=== PATIENT | female | born 1965 | race Caucasian/White ===

== ENCOUNTER 2017-07-15 16:29 | Emergency (ER) | payer SELFPAY ==
[~2017-07-15 16:29] MED LIST: ASPI81TA40 PO; CLOP75TA32 PO; LISI40TA4 PO
[2017-07-15 16:49] LABS: EOSINOPHILS % (AUTO) 1.6 % (0.0-8.0); HEMATOCRIT 43.4 % (36-48); MEAN CORPUSCULAR HEMOGLOBIN 30.6 pg (27.0-33.0); MEAN CORPUSCULAR HGB CONC 35.2 g/dL (32.0-36.0); MEAN CORPUSCULAR VOLUME 86.8 fL (79-99); MONOCYTES % (AUTO) 5.5 % (3.0-13.0); NEUTROPHILS % (AUTO) 63.9 % (40.0-77.0); PLATELET COUNT (AUTO) 292 K/uL (130-400); RED BLOOD CELL COUNT(AUTO) 4.99 MIL/uL (4.00-5.50); RED CELL DISTRIBUTION WIDTH 13.7 % (11.0-15.5); WHITE BLOOD COUNT (AUTO) 7.5 K/uL (4.8-10.8)
[2017-07-15 17:04] LABS: INR 0.95 (0.85-1.15); PARTIAL THROMBOPLASTIN TIME 23.4 SEC (26.3-35.5)
[2017-07-15 17:06] LABS: ALBUMIN 3.6 g/dL (3.5-5.0); BILIRUBIN,TOTAL 0.3 mg/dL (0.2-1.0); TOTAL PROTEIN, SERUM 6.9 g/dL (6.0-8.3)
[2017-07-15] MEDS ORDERED: IBUPROFEN 400 MG TABLET ONE (17:11)
[2017-07-15 17:13] LABS: POTASSIUM 2.6 mmol/L (3.5-5.1)
[2017-07-15] MEDS ORDERED: POTASSIUM CHLORIDE 20 MEQ ERTAB PO ONE (17:20)
[2017-07-15 18:10] LABS: APPEARANCE,URINE Clear (CLEAR); BILIRUBIN,URINE Negative (NEGATIVE); COLOR,URINE Yellow (YELLOW); GLUCOSE, URINE (UA) Negative (NEGATIVE); KETONES,URINE Negative (NEGATIVE); LEUKOCYTE ESTERASE ,URINE Negative (NEGATIVE); NITRATE,URINE Negative (NEGATIVE); OCCULT BLOOD,URINE Negative (NEGATIVE); PH,URINE 6.5 (5.0-8.0); PROTEIN,URINE Negative (NEGATIVE)
== END 2017-07-15 20:11 | disposition home or self-care (01) ==
LOC: EDH 16:29
DX: S32.008A Other fracture of unspecified lumbar vertebra, initial encounter for closed fracture (principal); S19.89XA Other specified injuries of other specified part of neck, initial encounter; I10 Essential (primary) hypertension; Z88.8 Allergy status to other drugs, medicaments and biological substances; W18.39XA Other fall on same level, initial encounter; Y93.89 Activity, other specified; Y92.89 Other specified places as the place of occurrence of the external cause; Y99.8 Other external cause status
CPT/HCPCS: 36415; 70450; 71045; 72125; 72131; 80053; 81003; 84484; 85025; 85610; 85730; 93005

== ENCOUNTER 2018-03-11 18:18 | Emergency (ER) | payer OTHER ==
[2018-03-11 18:55] LABS: BASOPHILS % (AUTO) 0.5 % (0.0-5.0); EOSINOPHILS % (AUTO) 0.7 % (0.0-8.0); LYMPHOCYTES % (AUTO) 26.8 % (21.0-51.0); MEAN CORPUSCULAR HEMOGLOBIN 26.6 pg (27.0-33.0); MEAN CORPUSCULAR HGB CONC 33.8 g/dL (32.0-36.0); MEAN CORPUSCULAR VOLUME 78.6 fL (79-99); MONOCYTES % (AUTO) 6.8 % (3.0-13.0); NEUTROPHILS % (AUTO) 65.2 % (40.0-77.0); PLATELET COUNT (AUTO) 243 K/uL (130-400); RED BLOOD CELL COUNT(AUTO) 5.59 MIL/uL (4.00-5.50); RED CELL DISTRIBUTION WIDTH 20.3 % (11.0-15.5); WHITE BLOOD COUNT (AUTO) 8.9 K/uL (4.8-10.8)
[2018-03-11 19:05] LABS: CARBON DIOXIDE 30 mmol/L (21-32); CHLORIDE 101 mmol/L (101-111); GLOMERULAR FILTR. RATE CALC 61 mL/min (>60); GLUCOSE,RANDOM 98 mg/dL (70-105); POTASSIUM 3.2 mmol/L (3.5-5.1); SODIUM SERUM 140 mmol/L (136-145); UREA NITROGEN, BLOOD 7 mg/dL (7-18)
[2018-03-11 19:09] LABS: ALANINE AMINOTRANSFERASE 32 U/L (12-78); ALBUMIN 3.7 g/dL (3.5-5.0); ASPARTATE AMINOTRANSFERASE 24 U/L (10-37); BILIRUBIN,TOTAL 0.3 mg/dL (0.2-1.0); SALICYLATE 4.9 mg/dL (2.8-20.0); TOTAL PROTEIN, SERUM 7.2 g/dL (6.0-8.3)
[2018-03-11 19:16] LABS: ACETAMINOPHEN < 1 mcg/mL (10-30); ALCOHOL, BLOOD < 3 mg/dL (0-10)
[2018-03-11] MEDS ORDERED: POTASSIUM BICARB/CIT AC 25 MEQ TABLET.EFF ONE (19:34)
[2018-03-11] MEDS ORDERED: POTASSIUM CHLORIDE 20 MEQ ERTAB PO ONE (19:38)
[2018-03-11 19:48] LABS: APPEARANCE,URINE Clear (CLEAR); BILIRUBIN,URINE Negative (NEGATIVE); COLOR,URINE Yellow (YELLOW); GLUCOSE, URINE (UA) Negative (NEGATIVE); KETONES,URINE Negative (NEGATIVE); LEUKOCYTE ESTERASE ,URINE Small (NEGATIVE); NITRATE,URINE Negative (NEGATIVE); OCCULT BLOOD,URINE Negative (NEGATIVE); PH,URINE 6.5 (5.0-8.0); PROTEIN,URINE Negative (NEGATIVE)
[2018-03-11 19:56] LABS: AMPHET/METH SCREEN,URINE NEGATIVE (NEGATIVE); BARBITURATE SCREEN, URINE NEGATIVE (NEGATIVE); BENZODIAZEPINES SCREEN,URINE NEGATIVE (NEGATIVE); CANNABINOID SCREEN,URINE NEGATIVE (NEGATIVE); COCAINE SCREEN,URINE NEGATIVE (NEGATIVE); OPIATE SCREEN,URINE NEGATIVE (NEGATIVE); PHENCYCLIDINE SCREEN,URINE NEGATIVE (NEGATIVE)
[2018-03-11 20:00] LABS: BACTERIA,URINE Few /HPF (None Seen); RBC,URINE 0-1 /HPF (0-1); WBC,URINE 0-1 /HPF (0-1)
== END 2018-03-11 20:12 | disposition home or self-care (01) ==
LOC: EDH 18:18
DX: R45.851 Suicidal ideations (principal); R45.850 Homicidal ideations; I10 Essential (primary) hypertension; F20.9 Schizophrenia, unspecified; J44.9 Chronic obstructive pulmonary disease, unspecified; Z72.0 Tobacco use; Z88.1 Allergy status to other antibiotic agents
CPT/HCPCS: 36415; 80053; 80305; 81001; 85025; 93005; 99285; G0480 ×2; G0481

== ENCOUNTER 2018-11-20 19:19 | Emergency (ER) | payer OTHER ==
[2018-11-20 20:33] LABS: EOSINOPHILS % (AUTO) 1.5 % (0.0-8.0); HEMATOCRIT 45.7 % (36-48); LYMPHOCYTES % (AUTO) 39.6 % (21.0-51.0); MEAN CORPUSCULAR HEMOGLOBIN 29.3 pg (27.0-33.0); MEAN CORPUSCULAR HGB CONC 34.8 g/dL (32.0-36.0); MEAN CORPUSCULAR VOLUME 84.2 fL (79-99); MONOCYTES % (AUTO) 5.8 % (3.0-13.0); NEUTROPHILS % (AUTO) 52.1 % (40.0-77.0); PLATELET COUNT (AUTO) 252 K/uL (130-400); RED BLOOD CELL COUNT(AUTO) 5.42 MIL/uL (4.00-5.50); RED CELL DISTRIBUTION WIDTH 15.8 % (11.0-15.5); WHITE BLOOD COUNT (AUTO) 9.2 K/uL (4.8-10.8)
[2018-11-20 20:41] LABS: INR 0.97 (0.85-1.15); PARTIAL THROMBOPLASTIN TIME 25.6 SEC (26.3-35.5); PROTHROMBIN TIME 10.2 SEC (9.6-11.6)
[2018-11-20 20:42] LABS: CREATININE 1.1 mg/dL (0.5-1.5); POTASSIUM 3.3 mmol/L (3.5-5.1)
[2018-11-20 20:47] LABS: BILIRUBIN,TOTAL 0.4 mg/dL (0.2-1.0); TOTAL PROTEIN, SERUM 7.7 g/dL (6.0-8.3)
[2018-11-20 21:27] LABS: BILIRUBIN,URINE Negative (NEGATIVE); COLOR,URINE Yellow (YELLOW); GLUCOSE, URINE (UA) Negative (NEGATIVE); KETONES,URINE Negative (NEGATIVE); LEUKOCYTE ESTERASE ,URINE Trace (NEGATIVE); NITRATE,URINE Negative (NEGATIVE); OCCULT BLOOD,URINE Negative (NEGATIVE); PH,URINE 5.5 (5.0-8.0); PROTEIN,URINE Negative (NEGATIVE); UROBILINOGEN,URINE 0.2 mg/dL (0.2-1.0)
[2018-11-20 21:31] LABS: APPEARANCE,URINE Clear (CLEAR)
[2018-11-20 21:35] LABS: AMPHET/METH SCREEN,URINE NEGATIVE (NEGATIVE); BARBITURATE SCREEN, URINE NEGATIVE (NEGATIVE); BENZODIAZEPINES SCREEN,URINE NEGATIVE (NEGATIVE); CANNABINOID SCREEN,URINE NEGATIVE (NEGATIVE); COCAINE SCREEN,URINE NEGATIVE (NEGATIVE); OPIATE SCREEN,URINE NEGATIVE (NEGATIVE); PHENCYCLIDINE SCREEN,URINE NEGATIVE (NEGATIVE)
[2018-11-20 21:50] LABS: BACTERIA,URINE Rare /HPF (None Seen); MUCUS,URINE Rare LPF (None Seen); RBC,URINE None Seen /HPF (0-1); WBC,URINE 0-1 /HPF (0-1)
== END 2018-11-20 23:28 | disposition home or self-care (01) ==
LOC: EDH 19:19
DX: I73.9 Peripheral vascular disease, unspecified (principal); M54.5 Low back pain; M79.605 Pain in left leg; M79.604 Pain in right leg; F41.9 Anxiety disorder, unspecified; J44.9 Chronic obstructive pulmonary disease, unspecified; F32.9 Major depressive disorder, single episode, unspecified; I10 Essential (primary) hypertension; F20.9 Schizophrenia, unspecified; Z88.1 Allergy status to other antibiotic agents
CPT/HCPCS: 36415; 71045; 72100; 80053; 80305; 81001; 82550; 84484; 85025; 85610; 85730; 93005; 93925; 93970

== ENCOUNTER → 2019-11-15 | Outpatient (CLI) | payer OTHER | END | disposition home or self-care (01) | LOC: SHCH 13:38 | PROVIDERS: ATTEND Internal Medicine Cardiovascular Disease | DX: R06.09 Other forms of dyspnea (principal) | CPT/HCPCS: 93306; 93356 ==

== ENCOUNTER → 2019-11-21 | Outpatient (CLI) | payer OTHER ==
[~2019-11-21] MED LIST changes: +AEC81 PO; +AMLO-257 PO; +ARIP2TAB3 PO; +ATOR40TA69 PO; +HYDR50CA PO; +NITR0.4T50 SL; +OLME40TA18 PO; +PANT20TA PO; +TOLT4CAP13 PO; +VENL225T3 PO
== END | disposition home or self-care (01) ==
LOC: SHCH 08:00
PROVIDERS: ATTEND Internal Medicine Cardiovascular Disease
DX: I87.2 Venous insufficiency (chronic) (peripheral) (principal)
CPT/HCPCS: 93880; 93925; 93970

== ENCOUNTER 2019-12-07 08:22 | Observation (INO) | payer OTHER ==
[2019-12-06 16:24] VITALS: BP 159/91; PULSE 105; RESP 18; TEMP 97.3
[~2019-12-07] VITALS: Ht 157.5 cm; Wt 76.2 kg
[2019-12-07] VITALS (23 sets, daily range): BP systolic 134–171; BP diastolic 75–117; PULSE 85–115; RESP 12–20; TEMP 97.3–97.9
[2019-12-07] MEDS ORDERED: SODIUM CHLORIDE 0.9% 1000ML 1,000 ML IV ONE (10:39)
[2019-12-07] MEDS ORDERED: LORAZEPAM 2 MG/ML 1 ML VIAL IM SCH (10:45)
[2019-12-07] MEDS ORDERED: IODIXANOL 320 MG/ML 100 ML VIAL ONE (13:15)
[2019-12-07] MEDS ORDERED: HEPARIN SODIUM 1000UNIT/ML 10ML VIAL ONE (13:15)
[2019-12-07] MEDS ORDERED: LIDOCAINE HCL 2% 20ML ONE (13:15)
[2019-12-07] MEDS ORDERED: FENTANYL CITRATE PF 50 MCG/1 ML 2ML VIAL ONE (13:15)
[2019-12-07] MEDS ORDERED: NITROGLYCERIN 2 MG/VIAL VIAL IV ONE (13:15)
[2019-12-07] MEDS ORDERED: MIDAZOLAM HCL 1 MG/ML 2ML VIAL ONE (13:15)
[2019-12-07] MEDS ORDERED: BIVALIRUDIN 250 MG/VIAL IV ONE (14:21)
[2019-12-07] MEDS ORDERED: IOHEXOL-350 50ML VIAL IV ONE (14:35)
[2019-12-07] MEDS ORDERED: IOHEXOL 350 MG/ML 100ML INFUS..BTL IV ONE (14:36)
[2019-12-07] MEDS ORDERED: SODIUM CHLORIDE 0.9% 1000ML 1,000 ML IV SCH (15:01)
[2019-12-07] MEDS ORDERED: ASPIRIN 81MG TAB.CHEW ONE (15:04)
[2019-12-07] MEDS ORDERED: CLOPIDOGREL BISULFATE 300 MG TAB ONE (15:04)
[2019-12-07] MEDS ORDERED: GLUCAGON 1MG KIT 1 MG ML IM PRN (15:15)
[2019-12-07] MEDS ORDERED: NITROGLYCERIN 0.4 MG SL TAB SL PRN ×2 (15:15→18:30)
[2019-12-07] MEDS ORDERED: HYDRALAZINE HCL 20 MG/ML VIAL IV PRN (15:15)
[2019-12-07] MEDS ORDERED: METOPROLOL TARTRATE 1 MG/ML 5ML VIAL IV PRN (15:15)
[2019-12-07] MEDS ORDERED: DEXTROSE 50%-WATER 50 ML DISP.SYRIN IV PRN (15:15)
--- NOTE | 2019-12-07 17:50 | NUR ---
TRANSFER PT TRANSFERRED TO ROOM 405 VIA BED. PT STABLE. NOT IN ANY APPARENT DISTRESS. CATH SITE TO RIGHT GROIN REMAINS SOFT, DRESSING DRY AND INTACT, NO OOZING NO HEMATOMA NOTED. REPORT GIVEN TO WILLY CERNA. PT RECEIVED BY WILLY CERNA.
--- NOTE | 2019-12-07 18:05 | NUR ---
RECEIVED TRANSFER TO ROOM 405 VIA BED IN SUPINE POSITION. AAOX3, RESP.'S EVEN AND UNLABORED. DENIES ANY CURRENT SOB, DENIES ANY CURRENT PAIN. RIGHT GROIN WITH D-STAT IN PLACE; AREA SOFT, NO BLEEDING OR ECCHYMOSIS NOTED. AREA SLIGHTLY FIRM AND TENDER ON PALPATION. MANUAL PRESSURE APPLIED. FEET WARM, DENIES ANY NUMBNESS OR TINGLING TO FEET. COMPLETE ASSESSMENT DONE. CALL LIGHT WITHIN REACH, VERBALIZED ABILITY TO USE. BED PLACED IN REVERSE [place] POSITION FOR COMFORT.
--- NOTE | 2019-12-07 18:12 | NUR ---
MANUAL PRESSURE RELEASES, AREA SOFT TO TOUCH. FEET WARM, PP'S (+) BILATERALLY. CALL LIGHT WITHIN REACH.
--- NOTE | 2019-12-07 18:25 | NUR ---
RESTING IN BED WATCHING TELEVISION. ASSISTED WITH DINNER BY FEMALE VISITOR AT BEDSIDE. RIGHT GROIN SOFT, NO HEMATOMA. CALL LIGHT WITHIN REACH.
[2019-12-07] MEDS ORDERED: PANTOPRAZOLE SODIUM 20 MG PO SCH (21:00)
[2019-12-07] MEDS ORDERED: HYDROXYZINE HCL 25 MG TABLET PO SCH (21:00)
[2019-12-07] MEDS ORDERED: PANTOPRAZOLE SODIUM 40 MG TABLET.DR PO SCH (21:00)
[2019-12-07] MEDS: ABILIFY 2 MG PO SCH (21:00)
[2019-12-07] MEDS ORDERED: AMLODIPINE BESYLATE 5 MG TAB PO SCH (21:00)
[2019-12-07] MEDS ORDERED: ASPIRIN 81 MG EC TAB PO SCH (21:00)
[2019-12-07] MEDS ORDERED: CLOPIDOGREL BISULFATE 75 MG TAB PO SCH (21:00)
[2019-12-07] MEDS ORDERED: ARIPIPRAZOLE 2 MG PO SCH (21:00)
[2019-12-07] MEDS ORDERED: NON-FORMULARY MEDICATION 1 EACH (Olmesartan Medoxomil 40 MG) PO SCH (21:00)
[2019-12-07] MEDS ORDERED: TOLTERODINE TARTRATE 4 MG PO SCH ×2 (21:00)
[2019-12-07] MEDS ORDERED: ATORVASTATIN CALCIUM 40 MG TABLET PO SCH (21:00)
[2019-12-07] MEDS ORDERED: HYDROXYZINE PAMOATE 100 MG PO SCH (21:00)
--- NOTE | 2019-12-07 21:00 | NUR ---
Home medication Abilify not available and or missing at bedside during med pass. I called day patient in the morning to verify if they have the medication left behind spoke to Lynne (Nurse) and said will look for it and call us back. I looked around the room and bottom of bed but did not find medication. Relayed information to Shanda AGUILERA during shift change and will follow up.
[2019-12-07] MEDS ORDERED: ACETAMINOPHEN-CODEINE 300/30MG TAB PO STA (21:13)
[2019-12-08 00:50] VITALS: BP 120/80; PULSE 98; RESP 18; TEMP 98.2
[2019-12-08 03:46] VITALS: BP 141/96; PULSE 93; RESP 18; TEMP 98.1
--- NOTE | 2019-12-08 07:30 | NUR ---
AM ASSESSMENT PT LAYING IN BED, HOB ELEVATED 30 DEGREES, RESTING. A/O X 3. NO SOB. NO DISTRESS NOTED. DENIES CHEST PAIN OR DISCOMFORT. DENIES PALPITATIONS. TELE: SR. DENIES N/V AND/OR DIARRHEA. RT GROIN DSG DRY & INTACT. NO BLEEDING, NO HEMATOMA NOTED. PUNCTURE SITE SOFT, NON-TENDER. UP W/ASSISTANCE. INSTRUCTED TO CALL FOR ASSISTANCE. CALL CARMINA W/IN REACH.
[2019-12-08 08:38] VITALS: BP 129/84; PULSE 101; RESP 18; TEMP 97.7
[2019-12-08] MEDS ORDERED: VENLAFAXINE HCL XR 37.5 MG CAP PO SCH (09:00)
[2019-12-08] MEDS ORDERED: CLOPIDOGREL BISULFATE 75 MG TAB PO SCH (09:00)
[2019-12-08] MEDS ORDERED: LOSARTAN 50 MG TABLET PO SCH (09:00)
[2019-12-08] MEDS ORDERED: HYDROXYZINE PAMOATE 50 MG PO SCH (09:00)
[2019-12-08] MEDS ORDERED: VENLAFAXINE HCL 225 MG PO SCH (09:00)
[2019-12-08] MEDS ORDERED: HYDROXYZINE HCL 25 MG TABLET PO SCH (09:00)
--- NOTE | 2019-12-08 10:24 | NUR ---
DISCHARGE Discharge instructions discussed with pt - family member at bedside for same. Pt aware that no new medications have been prescribed and that she is to continue all previous home medications as prior to admission. Pt voiced understanding. Discussed discharge activity restrictions as indicated by discharging MD. Drsg to right groin removed. No evidence of bleeding/oozing or hematoma. Bruising noted from cath site, extending to pubic area. Pt aware that bruising may extend before it begins to show improvement. No questions or concerns voiced by pt. Voiced understanding of all information discussed. No complaints voiced by pt during discussion. Pt to be transported by family member at bedside. Pt aware that she may begin driving 12/09/2019 and that she is able to shower beginning today.
--- NOTE | 2019-12-08 10:45 | NUR ---
DISCHARGE PT TAKEN TO PRIVATE VEHICLE VIA [facility], ACCOMPANIED BY FAMILY. NO DISTRESS NOTED.
== END 2019-12-08 10:40 | disposition home or self-care (01) ==
LOC: DAH 08:22 → DAHIP 08:23 → 4BH 17:49
PROVIDERS: ADMIT Internal Medicine Cardiovascular Disease; ATTEND Internal Medicine Cardiovascular Disease
DX: I20.9 Angina pectoris, unspecified (principal); I73.9 Peripheral vascular disease, unspecified; R06.02 Shortness of breath; I25.9 Chronic ischemic heart disease, unspecified; I10 Essential (primary) hypertension; E78.5 Hyperlipidemia, unspecified; F31.9 Bipolar disorder, unspecified; Z72.0 Tobacco use
CPT/HCPCS: 36415 ×3; 71045; 75625; 80048 ×2; 80061; 81003; 82550; 83874; 83880; 84484; 85025; 85027; 85610; 85730; 93005; 93458; 96372; 96374; A4215; A4216; A4221; A4222; A4223 ×3; A4606; A4663; C1769 ×2; C1874; C1887; C1894 ×2; C9600; G0378 ×17; J0360; J0583; J1644; J2060; J3490 ×2; J7030; Q9967 ×2

== ENCOUNTER 2019-12-28 14:52 | Emergency (ER) | payer OTHER ==
[~2019-12-28 14:52] MED LIST changes: -ASPI81TA40 PO; -LISI40TA4 PO
[2019-12-28 16:04] LABS: APPEARANCE,URINE CLOUDY (CLEAR); BILIRUBIN,URINE NEGATIVE (NEGATIVE); COLOR,URINE YELLOW (YELLOW); GLUCOSE, URINE (UA) NEGATIVE (NEGATIVE); KETONES,URINE NEGATIVE (NEGATIVE); LEUKOCYTE ESTERASE ,URINE LARGE (NEGATIVE); NITRATE,URINE POSITIVE (NEGATIVE); OCCULT BLOOD,URINE TRACE-INTACT (NEGATIVE); PROTEIN,URINE NEGATIVE (NEGATIVE); UROBILINOGEN,URINE 0.2 mg/dL (0.2-1.0)
[2019-12-28 16:12] LABS: BACTERIA,URINE Few /HPF (None Seen); SQUAMOUS EPITHELIAL CELL,UR Few /HPF (0-2); WBC,URINE 26-50 /HPF (0-1)
== END 2019-12-28 16:48 | disposition home or self-care (01) ==
LOC: EDH 14:52
DX: N39.0 Urinary tract infection, site not specified (principal); I10 Essential (primary) hypertension; J44.9 Chronic obstructive pulmonary disease, unspecified; F41.9 Anxiety disorder, unspecified; F20.9 Schizophrenia, unspecified; Z72.0 Tobacco use; Z88.1 Allergy status to other antibiotic agents
CPT/HCPCS: 81001; 87077; 87088; 87186

== ENCOUNTER 2020-05-07 05:30 | Day surgery (SDC) | payer OTHER ==
[2020-05-03 09:40] LABS: EOSINOPHILS % (AUTO) 7.8 % (0.0-8.0); HEMATOCRIT 44.2 % (36-48); LYMPHOCYTES % (AUTO) 20.8 % (21.0-51.0); MEAN CORPUSCULAR HGB CONC 33.5 g/dL (32.0-36.0); MEAN CORPUSCULAR VOLUME 83.7 fL (79-99); MONOCYTES % (AUTO) 6.5 % (3.0-13.0); NEUTROPHILS % (AUTO) 63.8 % (40.0-77.0); PLATELET COUNT (AUTO) 264 K/uL (130-400); RED BLOOD CELL COUNT(AUTO) 5.28 MIL/uL (4.00-5.50); RED CELL DISTRIBUTION WIDTH 14.7 % (11.0-15.5); WHITE BLOOD COUNT (AUTO) 8.3 K/uL (4.8-10.8)
[2020-05-03 09:46] LABS: CREATININE 1.3 mg/dL (0.5-1.5); POTASSIUM 3.8 mmol/L (3.5-5.1)
[2020-05-03 09:48] LABS: APPEARANCE,URINE Clear (CLEAR); BILIRUBIN,URINE Negative (NEGATIVE); COLOR,URINE Yellow (YELLOW); GLUCOSE, URINE (UA) Negative (NEGATIVE); KETONES,URINE Negative (NEGATIVE); LEUKOCYTE ESTERASE ,URINE Large (NEGATIVE); NITRATE,URINE Negative (NEGATIVE); OCCULT BLOOD,URINE Negative (NEGATIVE); PH,URINE 5.5 (5.0-8.0); PROTEIN,URINE Negative (NEGATIVE)
[2020-05-03 09:52] LABS: INR 1.03 (0.85-1.15); PROTHROMBIN TIME 11.1 SEC (9.6-11.6)
[2020-05-03 10:03] LABS: BACTERIA,URINE Rare /HPF (None Seen); SQUAMOUS EPITHELIAL CELL,UR Rare /HPF (0-2)
[2020-05-04 13:45] VITALS: BP 140/91
--- NOTE | 2020-05-04 16:25 | NUR ---
Clarification of order/abnormal UA Had Dr. Dempsey ([facility]) paged for order clarification. Office already closed. Clarified procedure to be done as Abdominal aortotogram with bilateral lower extremity run off with percutaneous transluminal angioplasty to left iliac artery. Also made him aware of UA results. Stated no further order for that.
[2020-05-07] VITALS (7 sets, daily range): BP systolic 104–143; BP diastolic 66–85
[~2020-05-07] VITALS: Ht 157.5 cm; Wt 72.6 kg
[~2020-05-07 05:30] MED LIST changes: -ARIP2TAB3 PO; +SODIUM CHLORIDE 0.9% 500ML 500 ML IV SCH; +VARE1TAB22 PO
[2020-05-07] MEDS ORDERED: NITR100C PO (07:12)
[2020-05-07] MEDS ORDERED: MIRA25TA PO (07:12)
[2020-05-07] MEDS ORDERED: LIDOCAINE HCL 2% 20ML ONE (07:16)
[2020-05-07] MEDS ORDERED: NITROGLYCERIN 2 MG/VIAL VIAL IV ONE (07:16)
[2020-05-07] MEDS ORDERED: IODIXANOL 320 MG/ML 100 ML VIAL ONE (07:16)
[2020-05-07] MEDS ORDERED: FENTANYL CITRATE PF 50 MCG/1 ML 2ML VIAL ONE (07:33)
[2020-05-07] MEDS ORDERED: MIDAZOLAM HCL 1 MG/ML 2ML VIAL ONE (07:33)
[2020-05-07] MEDS ORDERED: SODIUM CHLORIDE 0.9% 1000ML 1,000 ML IV ONE (09:22)
== END 2020-05-07 11:20 | disposition home or self-care (01) ==
LOC: DAH 05:30
PROVIDERS: ATTEND Internal Medicine Cardiovascular Disease
DX: I70.218 Atherosclerosis of native arteries of extremities with intermittent claudication, other extremity (principal); I25.119 Atherosclerotic heart disease of native coronary artery with unspecified angina pectoris; I87.2 Venous insufficiency (chronic) (peripheral); F43.10 Post-traumatic stress disorder, unspecified; F41.9 Anxiety disorder, unspecified; F32.9 Major depressive disorder, single episode, unspecified; E78.5 Hyperlipidemia, unspecified; I10 Essential (primary) hypertension; Z95.5 Presence of coronary angioplasty implant and graft; F17.200 Nicotine dependence, unspecified, uncomplicated; Z79.01 Long term (current) use of anticoagulants; Z79.82 Long term (current) use of aspirin; Z79.899 Other long term (current) drug therapy; Z20.828 Contact with and (suspected) exposure to other viral communicable diseases; Z53.8 Procedure and treatment not carried out for other reasons
CPT/HCPCS: 36415; 71045; 80048; 81001; 85025; 85610; 85730; 87077; 87088; 87186; 87426; 93005; A4215 ×2; A4216; A4221; A4222; A4223 ×2; A4606; A4663; C1769; C1894 ×2; J1644 ×2; J2250; J3010; J3490 ×2; J7030; Q9967; U0003; 99152

== ENCOUNTER 2020-05-28 09:41 | Day surgery (SDC) | payer OTHER ==
[2020-05-24 12:43] LABS: BASOPHILS % (AUTO) 0.8 % (0.0-5.0); EOSINOPHILS % (AUTO) 4.8 % (0.0-8.0); HEMATOCRIT 46.3 % (36-48); LYMPHOCYTES % (AUTO) 34.8 % (21.0-51.0); MEAN CORPUSCULAR HEMOGLOBIN 28.3 pg (27.0-33.0); MEAN CORPUSCULAR VOLUME 85.6 fL (79-99); MONOCYTES % (AUTO) 6.8 % (3.0-13.0); NEUTROPHILS % (AUTO) 52.5 % (40.0-77.0); PLATELET COUNT (AUTO) 270 K/uL (130-400); RED BLOOD CELL COUNT(AUTO) 5.41 MIL/uL (4.00-5.50); RED CELL DISTRIBUTION WIDTH 14.6 % (11.0-15.5); WHITE BLOOD COUNT (AUTO) 7.7 K/uL (4.8-10.8)
[2020-05-24 12:47] LABS: APPEARANCE,URINE Cloudy (CLEAR); BILIRUBIN,URINE Negative (NEGATIVE); COLOR,URINE Yellow (YELLOW); GLUCOSE, URINE (UA) Negative (NEGATIVE); KETONES,URINE Negative (NEGATIVE); LEUKOCYTE ESTERASE ,URINE Large (NEGATIVE); NITRATE,URINE Positive (NEGATIVE); OCCULT BLOOD,URINE Trace (NEGATIVE); PH,URINE 5.5 (5.0-8.0); PROTEIN,URINE Negative (NEGATIVE); UROBILINOGEN,URINE 0.2 mg/dL (0.2-1.0)
[2020-05-24 12:52] LABS: CREATININE 1.3 mg/dL (0.5-1.5); POTASSIUM 4.5 mmol/L (3.5-5.1)
[2020-05-24 12:53] LABS: INR 0.95 (0.85-1.15); PROTHROMBIN TIME 10.3 SEC (9.6-11.6)
[2020-05-24 12:54] LABS: RBC,URINE 0-1 /HPF (0-1)
[2020-05-24 12:55] LABS: BACTERIA,URINE Many /HPF (None Seen); SQUAMOUS EPITHELIAL CELL,UR Rare /HPF (0-2); WBC,URINE 51-100 /HPF (0-1)
[~2020-05-28] VITALS: Ht 157.5 cm; Wt 72.6 kg
[2020-05-28] VITALS (9 sets, daily range): BP systolic 131–160; BP diastolic 81–92
[~2020-05-28 09:41] MED LIST changes: +0.9% NACL 500ML IV.SOLN 500 ML IV SCH; +0.9%NACL 1000ML 1,000 ML IV ONE; +ARIP2TAB3 PO; +CEFTRIAXONE 1G VIAL IVP SCH; +ESOM20CA39 PO; +HYDR-3422 PO; +MELA1TAB52 PO; -NITR0.4T50 SL; -PANT20TA PO; -SODIUM CHLORIDE 0.9% 500ML 500 ML IV SCH; -TOLT4CAP13 PO; -VENL225T3 PO; +VORTIOXETINE PO
[2020-05-28] MEDS ORDERED: NITROGLYCERIN 2 MG VIAL IV ONE (11:25)
[2020-05-28] MEDS ORDERED: HEPARIN 10,000 UNIT/10ML (1,000 UNIT/ML) VIAL ONE (11:25)
[2020-05-28] MEDS ORDERED: IODIXANOL 320 MG/ML 100 ML VIAL ONE (11:25)
[2020-05-28] MEDS ORDERED: LIDOCAINE HCL 400MG/20ML VIAL ONE (11:26)
[2020-05-28] MEDS ORDERED: FENTANYL CITRATE PF 50 MCG/1 ML 2ML VIAL ONE ×2 (11:26→15:15)
[2020-05-28] MEDS ORDERED: MIDAZOLAM HCL 1 MG/ML 2ML VIAL ONE ×2 (11:26→12:49)
[2020-05-28] MEDS ORDERED: PROTAMINE SULFATE 10 MG/ML 25ML VIAL IV ONE (13:55)
[2020-05-28] MEDS ORDERED: GLUCAGON 1MG KIT 1 MG ML IM PRN (14:30)
[2020-05-28] MEDS ORDERED: METOPROLOL TARTRATE 1 MG/ML 5ML VIAL IV PRN (14:30)
[2020-05-28] MEDS ORDERED: NITROGLYCERIN 0.4 MG SL TAB SL PRN (14:30)
[2020-05-28] MEDS ORDERED: DEXTROSE 50%-WATER 50 ML DISP.SYRIN IV PRN (14:30)
[2020-05-28] MEDS ORDERED: LABETALOL 20MG SYG IV ONE (14:50)
== END 2020-05-28 18:42 | disposition home or self-care (01) ==
LOC: DAH 09:41
PROVIDERS: ATTEND Internal Medicine Cardiovascular Disease
DX: I70.212 Atherosclerosis of native arteries of extremities with intermittent claudication, left leg (principal); I70.92 Chronic total occlusion of artery of the extremities; F43.10 Post-traumatic stress disorder, unspecified; F41.9 Anxiety disorder, unspecified; F32.9 Major depressive disorder, single episode, unspecified; I10 Essential (primary) hypertension; E78.5 Hyperlipidemia, unspecified; I87.2 Venous insufficiency (chronic) (peripheral); I25.10 Atherosclerotic heart disease of native coronary artery without angina pectoris; E66.9 Obesity, unspecified; Z79.899 Other long term (current) drug therapy; Z79.82 Long term (current) use of aspirin; Z98.890 Other specified postprocedural states; Z68.30 Body mass index [BMI] 30.0-30.9, adult; Z79.01 Long term (current) use of anticoagulants
CPT/HCPCS: 36415; 71045; 75710; 80048; 81001; 85025; 85347 ×3; 85610; 85730; 87077; 87088; 87186; 93005; A4215; A4216; A4221; A4222; A4223 ×3; A4606; A4663; C1724 ×3; C1725; C1727; C1769 ×3; C1874; C1894 ×3; C2623; C9767; J0696; J1644 ×3; J2250 ×2; J2720; J3010 ×2; J3490 ×2; J7030; Q9967; 0238T; 37221; 75716; 99156; 99157; C9765

== ENCOUNTER 2020-11-22 17:04 | Emergency (ER) | payer BC, OTHER ==
[~2020-11-22] VITALS: Ht 154.9 cm; Wt 68.0 kg
[~2020-11-22 17:04] MED LIST changes: -0.9% NACL 500ML IV.SOLN 500 ML IV SCH; -0.9%NACL 1000ML 1,000 ML IV ONE; -CEFTRIAXONE 1G VIAL IVP SCH
[2020-11-22 17:31] VITALS: BP 165/102
[2020-11-22 18:12] LABS: BASOPHILS % (AUTO) 0.5 % (0.0-5.0); EOSINOPHILS % (AUTO) 0.8 % (0.0-8.0); HEMATOCRIT 49.1 % (36-48); MEAN CORPUSCULAR HEMOGLOBIN 30.1 pg (27.0-33.0); MEAN CORPUSCULAR HGB CONC 33.8 g/dL (32.0-36.0); MEAN CORPUSCULAR VOLUME 89.1 fL (79-99); MONOCYTES % (AUTO) 4.4 % (3.0-13.0); NEUTROPHILS % (AUTO) 76.9 % (40.0-77.0); PLATELET COUNT (AUTO) 262 K/uL (130-400); RED BLOOD CELL COUNT(AUTO) 5.51 MIL/uL (4.00-5.50); RED CELL DISTRIBUTION WIDTH 14.1 % (11.0-15.5); WHITE BLOOD COUNT (AUTO) 13.5 K/uL (4.8-10.8)
[2020-11-22 18:22] LABS: CARBON DIOXIDE 29 mmol/L (21-32); CHLORIDE 106 mmol/L (101-111); GLOMERULAR FILTR. RATE CALC 61 mL/min (>60); GLUCOSE,RANDOM 93 mg/dL (70-105); POTASSIUM 3.5 mmol/L (3.5-5.1); SODIUM SERUM 143 mmol/L (136-145); UREA NITROGEN, BLOOD 10 mg/dL (7-18)
[2020-11-22 18:24] LABS: INR 1.03 (0.85-1.15); PROTHROMBIN TIME 11.2 SEC (9.6-11.6)
[2020-11-22 18:25] VITALS: BP 145/94
[2020-11-22 18:34] LABS: ALANINE AMINOTRANSFERASE 33 U/L (12-78); ALBUMIN 3.8 g/dL (3.5-5.0); ASPARTATE AMINOTRANSFERASE 23 U/L (10-37); BILIRUBIN,TOTAL 0.3 mg/dL (0.2-1.0); CREATINE KINASE, TOTAL 135 U/L (21-232); MYOGLOBIN 46 ng/mL (10-92); TOTAL PROTEIN, SERUM 7.5 g/dL (6.0-8.3); TROPONIN I < 0.04 ng/mL (0.00-0.06)
[2020-11-22] MEDS ORDERED: CIPR-278 PO (19:38)
== END 2020-11-22 19:52 | disposition home or self-care (01) ==
LOC: EDH 18:43
DX: K52.9 Noninfective gastroenteritis and colitis, unspecified (principal); B34.9 Viral infection, unspecified; I10 Essential (primary) hypertension; I25.10 Atherosclerotic heart disease of native coronary artery without angina pectoris; Z88.1 Allergy status to other antibiotic agents; Z79.899 Other long term (current) drug therapy
CPT/HCPCS: 36415; 71045; 80053; 82550; 83874; 84484; 85025; 85610; 85730; 93005

== ENCOUNTER 2022-03-29 15:11 | Emergency (ER) | payer OTHER ==
[~2022-03-29] VITALS: Ht 152.4 cm; Wt 62.1 kg
[~2022-03-29 15:11] MED LIST changes: +ACET-2079 PO; +CIPR-278 PO; +MACR100 PO; +META800T72 PO
[2022-03-29 15:39] LABS: BASOPHILS % (AUTO) 0.4 % (0.0-5.0); EOSINOPHILS % (AUTO) 0.9 % (0.0-8.0); HEMATOCRIT 38.4 % (36-48); LYMPHOCYTES % (AUTO) 23.9 % (21.0-51.0); MEAN CORPUSCULAR HEMOGLOBIN 31.3 pg (27.0-33.0); MEAN CORPUSCULAR HGB CONC 35.2 g/dL (32.0-36.0); MEAN CORPUSCULAR VOLUME 89.1 fL (79-99); MONOCYTES % (AUTO) 5.8 % (3.0-13.0); NEUTROPHILS % (AUTO) 68.5 % (40.0-77.0); PLATELET COUNT (AUTO) 255 K/uL (130-400); RED BLOOD CELL COUNT(AUTO) 4.31 MIL/uL (4.00-5.50); RED CELL DISTRIBUTION WIDTH 13.3 % (11.0-15.5); WHITE BLOOD COUNT (AUTO) 11.7 K/uL (4.8-10.8)
[2022-03-29 15:53] LABS: ALBUMIN 3.2 g/dL (3.5-5.0); CREATININE 1.3 mg/dL (0.5-1.5); TOTAL PROTEIN, SERUM 6.7 g/dL (6.0-8.3)
[2022-03-29 16:03] LABS: POTASSIUM 2.2 mmol/L (3.5-5.1)
[2022-03-29] MEDS ORDERED: POTASSIUM BICARB/CIT AC 25 MEQ TABLET.EFF ONE (16:09)
[2022-03-29 16:20] VITALS: BP 125/81
[2022-03-29] MEDS ORDERED: POTASSIUM CHLORIDE 10MEQ/100ML 10 MEQ/100 ML ML IV SCH (16:30)
[2022-03-29] MEDS ORDERED: POTASSIUM BICARB/CIT AC 25 MEQ TABLET.EFF PO ONE (16:30)
[2022-03-29 16:49] LABS: APPEARANCE,URINE CLOUDY (CLEAR); BILIRUBIN,URINE NEGATIVE (NEGATIVE); COLOR,URINE YELLOW (YELLOW); GLUCOSE, URINE (UA) NEGATIVE (NEGATIVE); KETONES,URINE NEGATIVE (NEGATIVE); LEUKOCYTE ESTERASE ,URINE 500 Leu/uL (NEGATIVE); NITRATE,URINE 2+ (NEGATIVE); OCCULT BLOOD,URINE MODERATE (NEGATIVE); PH,URINE 6.5 (5.0-8.0); PROTEIN,URINE 50 mg/dL (NEGATIVE); UROBILINOGEN,URINE 0.2 mg/dL (0.2-1.0)
[2022-03-29 17:04] LABS: BACTERIA,URINE MOD /HPF (None Seen); SQUAMOUS EPITHELIAL CELL,UR FEW /HPF (0-2); WBC,URINE >100 /HPF (0-1)
== END 2022-03-29 17:39 | disposition left against medical advice (07) ==
LOC: EDH 15:11
DX: N39.0 Urinary tract infection, site not specified (principal); E87.6 Hypokalemia; F41.9 Anxiety disorder, unspecified; F32.A Depression, unspecified; E78.00 Pure hypercholesterolemia, unspecified; I10 Essential (primary) hypertension; Z88.1 Allergy status to other antibiotic agents; Z79.899 Other long term (current) drug therapy; Z79.82 Long term (current) use of aspirin; Z98.890 Other specified postprocedural states
CPT/HCPCS: 36415; 80053; 81001; 83735; 85025; 87077; 87088; 87186; 93005; 96365; 96366

== ENCOUNTER → 2022-08-01 | Outpatient (CLI) | payer OTHER ==
[~2022-08-01] MED LIST changes: +REGADENOSON 0.4 MG/5 ML PF SYG IVP SCH
== END | disposition home or self-care (01) ==
LOC: SHCH 09:16
PROVIDERS: ATTEND Internal Medicine Cardiovascular Disease
DX: I20.9 Angina pectoris, unspecified (principal)
CPT/HCPCS: 78452; 96374; 93017; J2785; A9500 ×2

== ENCOUNTER → 2022-08-19 | Outpatient (CLI) | payer OTHER ==
[~2022-08-19] MED LIST changes: -REGADENOSON 0.4 MG/5 ML PF SYG IVP SCH
== END | disposition home or self-care (01) ==
LOC: SHCH 08:40
PROVIDERS: ATTEND Internal Medicine Cardiovascular Disease
DX: I87.2 Venous insufficiency (chronic) (peripheral) (principal); I73.9 Peripheral vascular disease, unspecified; I70.8 Atherosclerosis of other arteries
CPT/HCPCS: 93925; 93970; 93978

== ENCOUNTER → 2022-10-22 | Outpatient (CLI) | payer OTHER ==
[2022-10-22 12:12] LABS: BASOPHILS % (AUTO) 0.7 % (0.0-5.0); EOSINOPHILS % (AUTO) 1.8 % (0.0-8.0); HEMATOCRIT 42.4 % (36-48); LYMPHOCYTES % (AUTO) 27.3 % (21.0-51.0); MEAN CORPUSCULAR HEMOGLOBIN 29.5 pg (27.0-33.0); MEAN CORPUSCULAR VOLUME 89.5 fL (79-99); MONOCYTES % (AUTO) 6.4 % (3.0-13.0); NEUTROPHILS % (AUTO) 63.6 % (40.0-77.0); PLATELET COUNT (AUTO) 271 K/uL (130-400); RED BLOOD CELL COUNT(AUTO) 4.74 MIL/uL (4.00-5.50); RED CELL DISTRIBUTION WIDTH 14.2 % (11.0-15.5); WHITE BLOOD COUNT (AUTO) 8.7 K/uL (4.8-10.8)
[2022-10-22 12:24] LABS: INR 0.97 (0.85-1.15); PROTHROMBIN TIME 10.6 SEC (9.6-11.6)
[2022-10-22 12:25] LABS: PARTIAL THROMBOPLASTIN TIME 27.1 SEC (26.3-35.5)
[2022-10-22 12:38] LABS: CREATININE 1.1 mg/dL (0.5-1.5)
[2022-10-22 12:43] LABS: POTASSIUM 2.9 mmol/L (3.5-5.1)
== END | disposition home or self-care (01) ==
LOC: LAB 10:34
PROVIDERS: ATTEND Internal Medicine Cardiovascular Disease
DX: I10 Essential (primary) hypertension (principal); I25.10 Atherosclerotic heart disease of native coronary artery without angina pectoris; Z79.02 Long term (current) use of antithrombotics/antiplatelets; Z79.01 Long term (current) use of anticoagulants
CPT/HCPCS: 36415; 80048; 85025; 85610; 85730

== ENCOUNTER → 2022-10-24 | Outpatient (CLI) | payer OTHER ==
[2022-10-24 12:29] LABS: CREATININE 1.2 mg/dL (0.5-1.5); POTASSIUM 3.5 mmol/L (3.5-5.1)
== END | disposition home or self-care (01) ==
LOC: LAB 08:07
PROVIDERS: ATTEND Internal Medicine Cardiovascular Disease
DX: I25.10 Atherosclerotic heart disease of native coronary artery without angina pectoris (principal)
CPT/HCPCS: 36415; 80048

== ENCOUNTER → 2023-01-22 | Outpatient (CLI) | payer OTHER ==
[2023-01-22 12:37] LABS: BASOPHILS # (AUTO) 0.06 K/uL (0.00-0.20); BASOPHILS % (AUTO) 0.7 % (0.0-5.0); EOSINOPHILS # (AUTO) 0.17 K/uL (0.00-0.70); HEMATOCRIT 40.8 % (36-48); IMMATURE GRANULOCYTE ABSOLUTE 0.01 K/uL (0-1); LYMPHOCYTES # (AUTO) 2.6 K/uL (1.0-4.8); LYMPHOCYTES % (AUTO) 29.3 % (21.0-51.0); MEAN CORPUSCULAR HEMOGLOBIN 29.7 pg (27.0-33.0); MEAN CORPUSCULAR HGB CONC 32.8 g/dL (32.0-36.0); MEAN CORPUSCULAR VOLUME 90.5 fL (79-99); MONOCYTES # (AUTO) 0.6 K/uL (0.1-1.0); MONOCYTES % (AUTO) 6.7 % (3.0-13.0); NEUTROPHILS # (AUTO) 5.3 K/uL (1.8-7.7); NEUTROPHILS % (AUTO) 61.2 % (40.0-77.0); PLATELET COUNT (AUTO) 219 K/uL (130-400); RED BLOOD CELL COUNT(AUTO) 4.51 MIL/uL (4.00-5.50); RED CELL DISTRIBUTION WIDTH 14.3 % (11.0-15.5); WHITE BLOOD COUNT (AUTO) 8.7 K/uL (4.8-10.8)
[2023-01-22 12:49] LABS: CREATININE 1.2 mg/dL (0.5-1.5); POTASSIUM 3.7 mmol/L (3.5-5.1)
[2023-01-22 13:29] LABS: INR 0.93 (0.85-1.15); PROTHROMBIN TIME 10.5 SEC (9.6-11.6)
[2023-01-22 13:30] LABS: PARTIAL THROMBOPLASTIN TIME 27.4 SEC (26.3-35.5)
== END | disposition home or self-care (01) ==
LOC: LAB 09:06
PROVIDERS: ATTEND Internal Medicine Cardiovascular Disease
DX: I87.1 Compression of vein (principal); E78.5 Hyperlipidemia, unspecified; M79.89 Other specified soft tissue disorders
CPT/HCPCS: 36415; 80048; 85025; 85610; 85730

== ENCOUNTER → 2023-07-10 | Outpatient (CLI) | payer OTHER | END | disposition home or self-care (01) | LOC: RAH 14:28 | PROVIDERS: ATTEND Internal Medicine Cardiovascular Disease | DX: I70.203 Unspecified atherosclerosis of native arteries of extremities, bilateral legs (principal) | CPT/HCPCS: 93925 ==

== ENCOUNTER → 2023-10-15 | Outpatient (CLI) | payer OTHER ==
[~2023-10-15] MED LIST changes: -ACET-2079 PO; +ALBUHFA IH; -AMLO-257 PO; +AMLO5TAB4 PO; -ARIP2TAB3 PO; -ATOR40TA69 PO; +BACL10TA PO; +BUPR150T3 PO; -CIPR-278 PO; +CLOP-31 PO; +DULO60CA64 PO; -ESOM20CA39 PO; -HYDR-3422 PO; -HYDR50CA PO; +KCL10IV IV; -MACR100 PO; -MELA1TAB52 PO; -META800T72 PO; +METO50TA9 PO; +NICO-777 TD; -OLME40TA18 PO; +ROSU40TA21 PO; -VARE1TAB22 PO; -VORTIOXETINE PO
== END | disposition home or self-care (01) ==
LOC: RAH 12:46
PROVIDERS: ATTEND Urology
DX: N39.0 Urinary tract infection, site not specified (principal); I25.10 Atherosclerotic heart disease of native coronary artery without angina pectoris; M51.45 Schmorl's nodes, thoracolumbar region; M47.815 Spondylosis without myelopathy or radiculopathy, thoracolumbar region
CPT/HCPCS: 74176

== ENCOUNTER → 2023-11-02 | Outpatient (CLI) | payer OTHER, MEDICARE ==
[~2023-11-02] MED LIST changes: -ROSU40TA21 PO; +ROSU40TA70 PO
[2023-11-02 12:09] LABS: BASOPHILS # (AUTO) 0.07 K/uL (0.00-0.20); BASOPHILS % (AUTO) 0.8 % (0.0-5.0); EOSINOPHILS # (AUTO) 0.16 K/uL (0.00-0.70); EOSINOPHILS % (AUTO) 1.8 % (0.0-8.0); IMMATURE GRANULOCYTE ABSOLUTE 0.03 K/uL (0-1); LYMPHOCYTES # (AUTO) 2.3 K/uL (1.0-4.8); LYMPHOCYTES % (AUTO) 26.4 % (21.0-51.0); MEAN CORPUSCULAR HEMOGLOBIN 31.4 pg (27.0-33.0); MEAN CORPUSCULAR HGB CONC 34.1 g/dL (32.0-36.0); MEAN CORPUSCULAR VOLUME 92.2 fL (79-99); MONOCYTES # (AUTO) 0.6 K/uL (0.1-1.0); MONOCYTES % (AUTO) 6.3 % (3.0-13.0); NEUTROPHILS # (AUTO) 5.7 K/uL (1.8-7.7); NEUTROPHILS % (AUTO) 64.4 % (40.0-77.0); PLATELET COUNT (AUTO) 215 K/uL (130-400); RED BLOOD CELL COUNT(AUTO) 4.77 MIL/uL (4.00-5.50); RED CELL DISTRIBUTION WIDTH 14.2 % (11.0-15.5); WHITE BLOOD COUNT (AUTO) 8.8 K/uL (4.8-10.8)
[2023-11-02 12:26] LABS: INR <= 0.93 (0.85-1.15); PROTHROMBIN TIME 10.9 SEC (9.6-11.6)
[2023-11-02 12:27] LABS: CREATININE 1.1 mg/dL (0.5-1.0); POTASSIUM 4.1 mmol/L (3.5-5.1)
[2023-11-02 12:28] LABS: PARTIAL THROMBOPLASTIN TIME 26.6 SEC (26.3-35.5)
== END | disposition home or self-care (01) ==
LOC: LAB 09:54
PROVIDERS: ATTEND Internal Medicine
DX: Z01.812 Encounter for preprocedural laboratory examination (principal); I73.9 Peripheral vascular disease, unspecified; I25.10 Atherosclerotic heart disease of native coronary artery without angina pectoris; I10 Essential (primary) hypertension; E78.5 Hyperlipidemia, unspecified; F17.200 Nicotine dependence, unspecified, uncomplicated; I87.1 Compression of vein; I87.2 Venous insufficiency (chronic) (peripheral); Z79.899 Other long term (current) drug therapy; Z95.820 Peripheral vascular angioplasty status with implants and grafts; I70.201 Unspecified atherosclerosis of native arteries of extremities, right leg; R07.9 Chest pain, unspecified; R55 Syncope and collapse
CPT/HCPCS: 36415; 80048; 85025; 85610; 85730